=== PATIENT | female | born 2000 | race Asian ===

== ENCOUNTER → 2023-08-03 16:19 | Outpatient (REF) | payer OTHER, SELFPAY | LOC: RAD 16:19 | PROVIDERS: ATTENDING PHYSICIAN Nurse Practitioner Family | DX: Z13.9 Encounter for screening, unspecified (principal) | CPT/HCPCS: 71046 ==

== ENCOUNTER → 2023-09-07 14:55 | Outpatient (REF) | payer BC, SELFPAY | LOC: CLAB 14:55 | PROVIDERS: ATTENDING PHYSICIAN Nurse Practitioner Adult Health | DX: N93.9 Abnormal uterine and vaginal bleeding, unspecified (principal); Z11.3 Encounter for screening for infections with a predominantly sexual mode of transmission | CPT/HCPCS: 87491; 87591; G0123 ==